=== PATIENT | female | born 1975 | race Caucasian/White ===

== ENCOUNTER → 2025-02-06 09:30 | Outpatient (BNVA) | payer BC, SELFPAY | PROVIDERS: PCP Family Medicine; Visit Provider Family Medicine | DX: Z00.00 Encounter for general adult medical examination without abnormal findings (principal); R32 Unspecified urinary incontinence; E89.40 Asymptomatic postprocedural ovarian failure | CPT/HCPCS: 80053; 80061; 81000; 84443; 85025; 87086 ==